=== PATIENT | female | born 1990 | race Caucasian/White ===

== ENCOUNTER 2016-11-13 16:15 | Emergency (ER) | payer OTHER ==
[~2016-11-13] VITALS: Ht 157.5 cm; Wt 44.8 kg
[~2016-11-13 16:15] MED LIST: ACET-749 PO; ALBUAER2 INH; CIPR1TAB11 PO; MULT-506 PO
[2016-11-13 16:21] VITALS: TEMP 36.8; Ht 157.5 cm; Wt 44.8 kg
[2016-11-13] MEDS ORDERED: MoRPHine SULFATE 4 MG/ML 1 ML CARP\\VIAL IV STA (16:58)
[2016-11-13] MEDS ORDERED: ONDANSETRON INJ 2 MG/ML 2 ML VIAL IV STA (16:58)
[2016-11-13] MEDS ORDERED: SODIUM CHLORIDE 0.9% 1000ML 1,000 ML IV STA (16:58)
[2016-11-13] MEDS ORDERED: PRVHFAIN INH (17:11)
[2016-11-13] MEDS ORDERED: IBUP-103 PO (17:11)
[2016-11-13 17:14] LABS: BASO % 0.1 %; BASO ABS # 0.01 K/uL (0-0.2); COMPLETE YES; EOS % 0.6 %; HEMATOCRIT 38.8 % (37-47); IG% 0.1 %; LYMPH % 10.8 %; LYMPH ABS # 0.85 K/uL (1.2-3.4); MEAN CELL VOLUME 90.9 fL (80-100); MEAN CORPUSCULAR HEMOGLOBIN 31.1 pg (25-34); MEAN CORPUSCULAR HGB CONC 34.3 g/dl (32-36); MEAN PLATELET VOLUME 10.7 fL (7.4-10.4); MONO % 5.2 %; NEUT % 83.2 %; PLATELET COUNT 255 K/uL (130-400); RED BLOOD COUNT 4.27 M/uL (4.2-5.4); WHITE BLOOD COUNT 7.87 K/uL (4.8-10.8)
[2016-11-13 17:29] LABS: CALCIUM 9.5 mg/dl (8.5-10.1); CREATININE 0.81 mg/dl (0.60-1.20); POTASSIUM 3.8 mmol/L (3.5-5.1)
[2016-11-13 18:05] LABS: PREG INTERNAL NEGATIVE QC NEG CLEAR BACKGROUND; PREG INTERNAL POSITIVE QC POS CONTROL LINE
[2016-11-13 18:24] VITALS: BP 104/52; PULSE 100; O2SAT 99
--- NOTE | 2016-11-13 18:30 | DIAGNOSTIC IMAGING REPORT ---
ULTRASOUND RIGHT UPPER QUADRANT ABDOMEN CLINICAL HISTORY: Right upper quadrant abdominal pain. COMPARISON STUDY: No priors. TECHNIQUE: Real-time, grayscale, and color flow sonography of the right upper quadrant of the abdomen was performed. Images are reviewed in the transverse and longitudinal planes. FINDINGS: Liver: The liver is normal in size and echotexture. There is no intrahepatic biliary ductal dilatation. The main portal vein is patent. Gallbladder: There are least 2 small gallbladder polyps measure up to 4 mm. The gallbladder is otherwise normal in appearance. No gallstones are identified. There is no gallbladder wall thickening or pericholecystic fluid. A sonographic Borja's sign is reportedly absent. The common bile duct measures up to 0.3 cm in diameter. Pancreas: Visualized portions of the pancreatic head and body are normal in appearance. The splenic vein is patent. Right kidney: Survey images of the right kidney demonstrate normal size and echotexture. There is no hydronephrosis. Ascites: None. IMPRESSION: Unremarkable sonographic assessment of the right upper quadrant. No gallstones are identified. Electronically signed by: Ton Garibay M.D. 11/13/2016 6:28 PM Dictated Date/Time: 11/13/2016 6:27 PM
--- NOTE | 2016-11-13 18:32 | DIAGNOSTIC IMAGING REPORT ---
PA CHEST WITH RIGHT-SIDED RIB SERIES CLINICAL HISTORY: Right chest wall pain FINDINGS: A PA chest radiograph with 4 additional views may right-sided rib series are obtained. No prior studies are available for comparison at the time of dictation. The cardiomediastinal silhouette is unremarkable. The lungs and pleural spaces are clear. No pneumothorax is seen. There is no radiographic evidence of right-sided rib fracture on the rib series. The remainder of the bony thorax is grossly intact. IMPRESSION: 1. No active disease in the chest. 2. There is no radiographic evidence of right-sided rib fracture as clinically queried. Electronically signed by: Ton Garibay M.D. 11/13/2016 6:31 PM Dictated Date/Time: 11/13/2016 6:30 PM
[2016-11-13 18:59] LABS: URINE APPEARANCE CLEAR (CLEAR); URINE BILIRUBIN NEG (NEG); URINE COLOR YELLOW; URINE NITRITE NEG (NEG); URINE SPECIFIC GRAVITY 1.006 (1.000-1.030); UROBILINOGEN NEG (NEG)
[2016-11-13 19:11] LABS: MANUAL MICROSCOPIC REQUIRED? NO; REVIEW REQ? NO
--- NOTE | 2016-11-13 19:51 | EMERGENCY ROOM VISIT NOTE ---
ED Visit Note First contact with patient: 16:27 Chief Complaint: Abdominal pain. History of Present Illness: Ms. Mg is a 25 year-old white female who ambulates into the ED accompanied by her son and a male friend complaining of right upper quadrant abdominal and chest pain. Historically patient reports she has asthma but no other significant abdominal disorders or surgeries. Patient reports approximately 2 weeks ago patient had an abrupt discomfort under her ribs/right upper quadrant area. She reports since that time her pain has been constant but has waxed and waned in intensity. She was seen at a local urgent care center who thought there was possibly a muscle strain and she was prescribed a steroid and had no relief of her symptoms. Currently patient describes her discomfort as if something is "pushing against her ribs." She currently rates her discomfort 7/10. When she does report a wax and wanes in intensity. She has not identified any factors that always increase or decrease her pain. In addition to the prednisone she has been using ibuprofen and has had no relief of her discomfort. Associated with her discomfort she reports that intermittently she has feels like she cannot catch her breath, she has lost approximately 12 pounds, loss of appetite, she is nauseated but has not vomited, epigastric burning sensations, palpitations. Patient denies skin eruptions, skin color changes, upper respiratory tract symptoms, cough, wheezing, orthopnea, dependent edema, previous clots, claudication, cramping, recent surgery/inactivity/tobacco and estrogen use, diarrhea, constipation, rectal bleeding, black/tarry stools, urinary symptoms, hematuria, vaginal bleeding, vaginal discharge, back/flank pain. Review of Systems: As noted above in history of present illness. All body systems were reviewed and found to be negative as noted above. Past Medical History: As previously noted. Current Medications: Albuterol, multivitamins. Allergies to Medications: Patient denies. Social History: Patient is not employed; she feels safe in her home environment ; she admits to tobacco use and denies alcohol use. Physical Examination: Vital Signs: Date Time Temp Pulse Resp B/P Pulse Ox O2 Delivery O2 Flow Rate FiO2 11/13/16 18:24 100 16 104/52 99 Room Air 11/13/16 17:39 60 12 118/58 100 Room Air 11/13/16 16:21 36.8 97 20 92/46 98 Room Air GENERAL: 25-year-old female in mild distress due to pain, nontoxic-appearing, afebrile and hemodynamically stable. NEUROLOGICAL: Awake, alert and oriented to person, place and time. Answering questions appropriately and following commands. Normal gait. Good hand eye coordination. SKIN: Warm, dry and pink. No soft tissue eruptions or trauma noted. HEENT: Atraumatic and normocephalic. PERRLA. Sclera white and conjunctiva pink. Oral cavity moist and pink. Pharynx is nonerythematous or edematous. Speech normal. No lymphadenopathy. Trachea midline. No jugular venous distention. BACK: No tenderness over the bony spine. No CVA tenderness. THORAX: Lungs sounds are clear to auscultation and equal bilaterally with symmetrical chest wall. No wheezing, rales or rhonchi. Mild tenderness over the right lateral ribs without bony deformity, bony crepitus, swelling, ecchymosis or subcutaneous air. No increased respiratory effort or rate. HEART: Regular rate and rhythm. No gallops, rubs or murmurs are appreciated. PMI is not displaced. No lifts, heaves or thrills. ABDOMEN: Flat and soft with [id number] tenderness in the epigastrium and right upper quadrant. Decreased bowel sounds in all quadrants. No guarding, rigidity or organomegaly. EXTREMITIES: Moves all extremities well on command and with purpose. All distal neurovascular statuses are intact and equal bilaterally. ED Course: Patient is assessed as noted above. Laboratory Testing: Test 11/13/16 16:45 11/13/16 16:52 Range/Units White Blood Count 7.87 4.8-10.8 K/uL Red Blood Count 4.27 4.2-5.4 M/uL Hemoglobin 13.3 12.0-16.0 g/dL Hematocrit 38.8 37-47 % Mean Corpuscular Volume 90.9 80-100 fL Mean Corpuscular Hemoglobin 31.1 25-34 pg Mean Corpuscular Hemoglobin Concent 34.3 32-36 g/dl Platelet Count 255 130-400 K/uL Mean Platelet Volume 10.7 7.4-10.4 fL Neutrophils (%) (Auto) 83.2 % Lymphocytes (%) (Auto) 10.8 % Monocytes (%) (Auto) 5.2 % Eosinophils (%) (Auto) 0.6 % Basophils (%) (Auto) 0.1 % Neutrophils # (Auto) 6.54 1.4-6.5 K/uL Lymphocytes # (Auto) 0.85 1.2-3.4 K/uL Monocytes # (Auto) 0.41 0.11-0.59 K/uL Eosinophils # (Auto) 0.05 0-0.5 K/uL Basophils # (Auto) 0.01 0-0.2 K/uL RDW Standard Deviation 43.0 36.4-46.3 fL RDW Coefficient of Variation 13.0 11.5-14.5 % Immature Granulocyte % (Auto) 0.1 % Immature Granulocyte # (Auto) 0.01 0.00-0.02 K/uL Sodium Level 139 136-145 mmol/L Potassium Level 3.8 3.5-5.1 mmol/L Chloride Level 107 98-107 mmol/L Carbon Dioxide Level 25 21-32 mmol/L Anion Gap 7.0 3-11 mmol/L Blood Urea Nitrogen 7 7-18 mg/dl Creatinine 0.81 0.60-1.20 mg/dl Est Creatinine Clear Calc Drug Dose 76.4 ml/min Estimated GFR () 118.6 Estimated GFR (Non- 102.4 BUN/Creatinine Ratio 9.0 10-20 Random Glucose 96 70-99 mg/dl Calcium Level 9.5 8.5-10.1 mg/dl Total Bilirubin 0.5 0.2-1 mg/dl Direct Bilirubin 0.1 0-0.2 mg/dl Aspartate Amino Transf (AST/SGOT) 12 15-37 U/L Alanine Aminotransferase (ALT/SGPT) 21 12-78 U/L Alkaline Phosphatase 63 45-117 U/L Total Protein 7.4 6.4-8.2 gm/dl Albumin 4.3 3.4-5.0 gm/dl Lipase 111 73-393 U/L Human Chorionic Gonadotropin, Qual NEG NEG Bedside D-Dimer 133 0-450 ng/mlFEU Bedside Troponin I 0.000 0-0.045 ng/ml EKG: Was read by myself and reviewed with Dr. Baker; shows rhythm with ventricular rate of 71 bpm. Atrial bigeminy. No ischemic changes. No previous to compare. PA Chest and Rib Series: Were read by myself and the radiologist showing no acute infiltrates, effusions or pneumothorax. Normal heart silhouette and no apparent bony abnormalities. RUQ Ultrasound: Was reviewed by myself and read by the radiologist showing a normal-appearing liver, pancreas and kidney. The gallbladder was noted to have at least 2 small polyps measuring up to 4 mm without gallstones, gallbladder wall thickening, pericholecystic fluid and negative Borja sign. Common bile duct measures 0.3 cm. Patient was hydrated with normal saline and she received 4 mg of morphine IV for pain and 4 mg of Zofran IV for nausea. Patient was reassessed multiple times during her stay in the emergency department. Patient's case was reviewed with Dr. Baker; we agreed upon diagnostic approach, treatment, disposition and plan. Patient was educated about tonight's findings and instructed on her treatment plan; she verbalizes understanding and agreement with this plan. Clinical Impression: Right upper quadrant abdominal pain. Gallbladder polyps. Possible GERD. Decision-Making: Initially my differential diagnosis I considered acute cholecystitis, hepatitis, pancreatitis, pneumonia, rib fracture, pulmonary embolism, pneumothorax and other causes. Disposition: Patient discharged home in stable condition accompanied by a male friend; prior to departure she was reassessed and subjectively reported she was feeling much better. She rated her discomfort 2/10 and reported resolution of nausea. Additionally she reported she felt like she was breathing much easier now. Plan: Patient was encouraged to use 650 mg of acetaminophen as needed for pain and [id number] Zantac for indigestion like symptoms. Patient was encouraged use a low-fat diet and avoid stomach irritants and late night eating. Patient was encouraged to follow-up with Dr. Tom Knowles, general surgery, for surgical evaluation. Patient was encouraged return the ED for worsening/uncontrolled pain, fevers, bloody vomitus, bloody stools or any new/concerning symptoms.
== END 2016-11-13 19:05 | disposition home or self-care (01) ==
LOC: C.EDB 16:18 → C.EDC 19:05
DX: K82.4 Cholesterolosis of gallbladder (principal); R10.11 Right upper quadrant pain; F17.200 Nicotine dependence, unspecified, uncomplicated; Z79.899 Other long term (current) drug therapy

== ENCOUNTER → 2017-01-08 | Outpatient (CLI) | payer OTHER ==
[~2017-01-08] MED LIST changes: -ACET-749 PO; -ALBUAER2 INH; +BCPILLS PO; -CIPR1TAB11 PO; +IBUP-103 PO; -MULT-506 PO; +OXYC-57 PO; +PRVHFAIN INH; +RANI150T3 PO
[2017-01-08 15:17] LABS: MANUAL MICROSCOPIC REQUIRED? NO; REVIEW REQ? NO; URINE APPEARANCE CLEAR (CLEAR); URINE BILIRUBIN NEG (NEG); URINE COLOR YELLOW; URINE NITRITE NEG (NEG); URINE PH 6.5 (4.5-7.5); URINE SPECIFIC GRAVITY 1.006 (1.000-1.030); UROBILINOGEN NEG (NEG)
== END | disposition home or self-care (01) ==
LOC: C.LABSPEC 14:57
PROVIDERS: ATTEND Obstetrics & Gynecology
DX: R30.0 Dysuria (principal)

== ENCOUNTER 2017-02-10 18:57 | Observation (INO) | payer OTHER ==
[~2017-02-10] VITALS: Ht 160 cm; Wt 45.4 kg
[~2017-02-10 18:57] MED LIST changes: -BCPILLS PO; -OXYC-57 PO; -RANI150T3 PO
[2017-02-10] MEDS ORDERED: SODIUM CHLORIDE 0.9% 1000ML 1,000 ML IV STA (19:01)
[2017-02-10] MEDS ORDERED: HYDROmorphone INJ 1 MG/ML SYR IV STA (19:07)
[2017-02-10] MEDS ORDERED: METOCLOPRAMIDE HCL INJ 5 MG/ML 2 ML VIAL IV STA (19:07)
[2017-02-10] MEDS ORDERED: OPTIRAY 320 IV PRN (19:15)
[2017-02-10 19:18] LABS: BASO % 0.1 %; BASO ABS # 0.01 K/uL (0-0.2); COMPLETE YES; EOS % 0.4 %; HEMATOCRIT 41.7 % (37-47); IG% 0.2 %; LYMPH % 5.5 %; LYMPH ABS # 0.73 K/uL (1.2-3.4); MEAN CORPUSCULAR HEMOGLOBIN 30.6 pg (25-34); MEAN CORPUSCULAR HGB CONC 33.6 g/dl (32-36); MONO % 4.3 %; NEUT % 89.5 %; PLATELET COUNT 214 K/uL (130-400); RED BLOOD COUNT 4.58 M/uL (4.2-5.4); WHITE BLOOD COUNT 13.39 K/uL (4.8-10.8)
[2017-02-10] MEDS ORDERED: RANI150T3 PO (19:18)
[2017-02-10] MEDS ORDERED: BCPILLS PO (19:18)
--- NOTE | 2017-02-10 19:22 | EMERGENCY ROOM VISIT NOTE ---
History Report prepared by Devang: Destiny Carlson Under the Supervision of: Dr. Kendall Eaton M.D. First contact with patient: 18:54 Chief Complaint: ABDOMINAL PAIN Stated Complaint: Abdominal Pain History of Present Illness The patient is a 26 year old female who presents to the Emergency Room with complaints of worsening abdominal pain for the past 7 hours. She developed diffuse abdominal pain around noon today. She is complaining of abdominal cramping, nausea, and vomiting. The patient was brought to the ED by ambulance. Her pain was a 10/10 in severity. She was given 5 mg of morphine en route and states that her pain improved. She rates her current pain as a 6/10 in severity. EMS states that after she received the narcotics, her pressure dropped significantly so they did not administer any more morphine. The patient had a cholecystectomy 3 weeks ago at [facility]. Her LNMP was January 31. She denies any chance of . Source of History: patient, EMS Onset: 7 hours ago Position: abdomen (diffuse) Symptom Intensity: 6/10 Quality: cramping Timing: worsening Modifying Factors (Relieving): narcotics Associated Symptoms: + nausea, + vomiting Review of Systems See HPI for pertinent positives & negatives. A total of 10 systems reviewed and were otherwise negative. Past Medical & Surgical Medical Problems: (1) PLACENTAINCRETA (2) Retained placenta (3) Retained placenta Surgical Problems: (1) Hx of cholecystectomy Family History No pertinent history stated. Social History Smoking Status: Current Every Day Smoker Current/Historical Medications Scheduled Control Pills ( Control Pills), 1 TAB PO DAILY Ranitidine Hcl (Zantac), 150 MG PO QAM Scheduled PRN Albuterol (Ventolin Hfa), 2 PUFFS INH Q4H PRN for Wheezing Allergies Coded Allergies: No Known Allergies (Unverified , 02/10/17) Physical Exam Vital Signs Date Time Temp Pulse Resp B/P (MAP) Pulse Ox O2 Delivery O2 Flow Rate FiO2 02/10/17 23:00 93 14 101/88 98 Room Air 02/10/17 21:27 67 11 97 02/10/17 21:02 107/72 02/10/17 20:57 75 24 02/10/17 20:31 85/44 02/10/17 20:27 78 16 99 02/10/17 20:26 76 18 108/54 99 02/10/17 20:16 108/54 02/10/17 19:57 77 100 02/10/17 19:19 69 20 118/72 98 Room Air 02/10/17 19:13 65 02/10/17 19:09 118/72 Physical Exam GENERAL: Patient is a healthy-appearing well-nourished young female. HEAD: Normocephalic atraumatic EYES: Ocular movements intact pupils equal and react to light OROPHARYNX mucous membranes are moist no exudates present no erythema or edema present NECK: Supple no nuchal rigidity CHEST: Good equal expansion LUNGS: Clear and equal to auscultation CARDIAC: Normal S1 and S2 ABDOMEN: Soft, diffuse tenderness, no guarding BACK: No CVA tenderness EXTREMITIES: No pain upon palpation normal muscle strength in all groups no clubbing cyanosis or edema NEURO: Patient is following commands and answering questions appropriately. Alert and oriented x3 Cranial Nerves 2-12 grossly intact Medical Decision & Procedures ER Provider Diagnostic Interpretation: Radiology results as stated below per my review and radiologist interpretation: ABDOMEN AND PELVIS CT WITH IV AND ORAL CONTRAST CT DOSE: 248.16 mGy.cm HISTORY: Generalized abdominal pain. TECHNIQUE: Multiaxial CT images of the abdomen and pelvis were performed following the use of intravenous and oral contrast. COMPARISON STUDY: Abdominal ultrasound 11/13/2016. FINDINGS: Blind-ending tubular structure within the right lower quadrant which is thickened and fluid-filled. This likely represents the inflamed appendix is consistent with acute appendicitis. This measures up to 11 mm in diameter. There is fluid surrounding the inflamed appendix and mild enhancement of the right posterior peritoneal lining. However, there are no loculated fluid collections at this time to suggest an abscess. There is no extraluminal gas to suggest a perforation. Small amount of pelvic free fluid. A 3.5 cm left ovarian cyst. The bladder, uterus, and right ovary are unremarkable. No retroperitoneal lymphadenopathy. Mild intra and extra hepatic bile duct dilatation. This is likely due to the patient's postcholecystectomy state. The common bile duct measures 8 mm. No hepatic or splenic masses. The adrenal glands, kidneys, and pancreas are unremarkable. Dilatation of the duodenum is likely due to an ileus from the adjacent inflammatory change. No additional dilated loops of small bowel identified. The duodenal measures up to 3.1 cm in diameter. IMPRESSION: 1. Above findings are consistent with acute appendicitis. 2. A 3.5 cm left ovarian cyst. 4. Small amount of pelvic fluid. 5. Cholecystectomy. 6. Mild dilatation of the duodenum may be due to an ileus from the adjacent inflammatory change. Electronically signed by: Alvaro Butler M.D. 02/10/2017 9:53 PM Dictated Date/Time: 02/10/2017 9:42 PM Laboratory Results 02/10/17 19:05 Red Blood Count 4.58, Mean Corpuscular Volume 91.0, Mean Corpuscular Hemoglobin 30.6, Mean Corpuscular Hemoglobin Concent 33.6, Mean Platelet Volume 11.0, Neutrophils (%) (Auto) 89.5, Lymphocytes (%) (Auto) 5.5, Monocytes (%) (Auto) 4.3, Eosinophils (%) (Auto) 0.4, Basophils (%) (Auto) 0.1, Neutrophils # (Auto) 11.99, Lymphocytes # (Auto) 0.73, Monocytes # (Auto) 0.58, Eosinophils # (Auto) 0.05, Basophils # (Auto) 0.01 02/10/17 19:05 Test 02/10/17 19:05 02/10/17 19:13 02/10/17 20:15 02/10/17 23:07 White Blood Count 13.39 K/uL (4.8-10.8) Red Blood Count 4.58 M/uL (4.2-5.4) Hemoglobin 14.0 g/dL (12.0-16.0) Hematocrit 41.7 % (37-47) Mean Corpuscular Volume 91.0 fL (80-100) Mean Corpuscular Hemoglobin 30.6 pg (25-34) Mean Corpuscular Hemoglobin Concent 33.6 g/dl (32-36) Platelet Count 214 K/uL (130-400) Mean Platelet Volume 11.0 fL (7.4-10.4) Neutrophils (%) (Auto) 89.5 % Lymphocytes (%) (Auto) 5.5 % Monocytes (%) (Auto) 4.3 % Eosinophils (%) (Auto) 0.4 % Basophils (%) (Auto) 0.1 % Neutrophils # (Auto) 11.99 K/uL (1.4-6.5) Lymphocytes # (Auto) 0.73 K/uL (1.2-3.4) Monocytes # (Auto) 0.58 K/uL (0.11-0.59) Eosinophils # (Auto) 0.05 K/uL (0-0.5) Basophils # (Auto) 0.01 K/uL (0-0.2) RDW Standard Deviation 42.4 fL (36.4-46.3) RDW Coefficient of Variation 12.9 % (11.5-14.5) Immature Granulocyte % (Auto) 0.2 % Immature Granulocyte # (Auto) 0.03 K/uL (0.00-0.02) Est Creatinine Clear Calc Drug Dose 86.7 ml/min Estimated GFR () 121.4 Estimated GFR (Non- 104.8 BUN/Creatinine Ratio 9.0 (10-20) Calcium Level 8.7 mg/dl (8.5-10.1) Total Bilirubin 0.4 mg/dl (0.2-1) Direct Bilirubin 0.1 mg/dl (0-0.2) Aspartate Amino Transf (AST/SGOT) 13 U/L (15-37) Alanine Aminotransferase (ALT/SGPT) 20 U/L (12-78) Alkaline Phosphatase 62 U/L (45-117) Total Protein 7.0 gm/dl (6.4-8.2) Albumin 4.2 gm/dl (3.4-5.0) Lipase 108 U/L (73-393) Human Chorionic Gonadotropin, Qual NEG (NEG) Bedside Hemoglobin 14.3 g/dl (12.0-16.0) Bedside Hematocrit 42 % (37-47) Bedside Sodium 140 mEq/L (135-144) Bedside Potassium 3.4 mEq/L (3.3-5.0) Bedside Chloride 102 mEq/L (101-112) Bedside Total CO2 23 mEq/l (24-31) Anion Gap 20.0 mmol/L (16-25) Bedside Blood Urea Nitrogen 7 mg/dl (7-18) Bedside Creatinine 0.8 mg/dl (0.6-1.3) Bedside Glucose (other) 95 mg/dl (70-99) Bedside Ionized Calcium (Arnaldo) 1.16 mmol/l (1.12-1.32) Urine Color YELLOW Urine Appearance CLEAR (CLEAR) Urine pH 5.0 (4.5-7.5) Urine Specific [place] 1.015 (1.000-1.030) Urine Protein NEG (NEG) Urine Glucose (UA) NEG (NEG) Urine Ketones 1+ (NEG) Urine Occult Blood NEG (NEG) Urine Nitrite NEG (NEG) Urine Bilirubin NEG (NEG) Urine Urobilinogen NEG (NEG) Urine Leukocyte Esterase NEG (NEG) Urine Test NEG (NEG) Labs reviewed by ED physician. Medications Administered Medications (Trade) Dose Ordered Sig/Stan Route Start Time Stop Time Status Last Admin Dose Admin Sodium Chloride 1,000 ml @ 999 mls/hr Q1H1M STAT IV 02/10/17 19:01 02/10/17 20:01 DC 02/10/17 19:25 999 MLS/HR Hydromorphone HCl (Dilaudid Inj) 1 mg NOW STAT IV 02/10/17 19:07 02/10/17 19:08 DC 02/10/17 19:26 1 MG Metoclopramide HCl (Reglan Inj) 10 mg NOW STAT IV 02/10/17 19:07 02/10/17 19:08 DC 02/10/17 19:26 10 MG Cefoxitin Sodium (Mefoxin 2000mg/ 60 ml D5W) 2,000 mg NOW STAT IV 02/10/17 21:58 02/10/17 21:59 DC 02/10/17 21:58 2,000 MG ECG Indication: abdominal pain Rate (beats per minute): 69 Rhythm: other (atrial bigeminy) Findings: no acute ischemic change, no ectopy Comparison ECG Date: 11/13/16 Change: no significant change ED Course 1853: Past medical records reviewed. The patient was evaluated in room B1. A complete history and physical examination was performed. 0: At this time I performed a bedside F.A.S.T. ultrasound that was normal and did not show any free fluid. 1900: NSS 1000 ml @ 999 mls/hr IV 1906: Reglan 10 mg IV, Dilaudid 1 mg IV 2157: Cefoxitin Sodium 2000 mg IV 2201: I spoke with Dr. Clark of general surgery. We discussed the patient's case and Dr. Clark will come to the ED to evaluate the patient for surgery. 2211: I reassessed the patient at this time. She is doing well. I discussed the results and treatment plan with the patient. I answered all pertaining questions that she had. She expressed understanding and verbalized agreement. Medical Decision Differential diagnosis: Etiologies such as appendicitis, diverticulitis, PUD, biliary pathology, UTI, pancreatitis, obstruction, mesenteric ischemia, aortic pathology, infections, inflammatory bowel disease, renal colic, as well as others were entertained. Medication Reconciliation: I attest that I have personally reviewed the patient' s current medication list. Blood Pressure Screening: Patient was found to have normal blood pressure on screening and does not require follow up. This is a 26-year-old female that presents emergency department complaining of diffuse abdominal pain. An IV was established, patient given normal saline bolus, Dilaudid, Reglan. The patient was sent for a CAT scan of the abdomen and pelvis. This was concerning for acute appendicitis. For this reason I did discuss the case with the surgery service who agreed to admit the patient. Patient was in agreement with the treatment plan. Consults Time Called: 2199 Consulting Physician: Dr. Clark Returned Call: [address] Clark of general surgery. We discussed the patient's case and Dr. Clark will come to the ED to evaluate the patient for surgery. Impression Primary Impression: Acute appendicitis Scribe Attestation The scribe's documentation has been prepared under my direction and personally reviewed by me in its entirety. I confirm that the note above accurately reflects all work, treatment, procedures, and medical decision making performed by me. Departure Information Dispostion Being Evaluated By Surgeon Referrals No Doctor, Assigned (PCP) Patient Instructions My [facility] Problem Qualifiers Primary Impression: Acute appendicitis Acute appendicitis type: unspecified acute appendicitis type Qualified Codes : K35.80 - Unspecified acute appendicitis
[2017-02-10 19:27] LABS: ISTAT CREATININE 0.8 mg/dl (0.6-1.3); ISTAT HEMOGLOBIN 14.3 g/dl (12.0-16.0); ISTAT IONIZED CALCIUM 1.16 mmol/l (1.12-1.32)
[2017-02-10 19:35] LABS: CALCIUM 8.7 mg/dl (8.5-10.1); CREATININE 0.79 mg/dl (0.60-1.20); POTASSIUM 3.4 mmol/L (3.5-5.1)
[2017-02-10 19:38] LABS: PREG INTERNAL NEGATIVE QC NEG CLEAR BACKGROUND; PREG INTERNAL POSITIVE QC POS CONTROL LINE
[2017-02-10 20:28] LABS: URINE APPEARANCE CLEAR (CLEAR); URINE BILIRUBIN NEG (NEG); URINE COLOR YELLOW; URINE NITRITE NEG (NEG); URINE SPECIFIC GRAVITY 1.015 (1.000-1.030); UROBILINOGEN NEG (NEG)
[2017-02-10 20:31] LABS: MANUAL MICROSCOPIC REQUIRED? NO; REVIEW REQ? NO
--- NOTE | 2017-02-10 21:54 | DIAGNOSTIC IMAGING REPORT ---
ABDOMEN AND PELVIS CT WITH IV AND ORAL CONTRAST CT DOSE: 248.16 mGy.cm HISTORY: Generalized abdominal pain. TECHNIQUE: Multiaxial CT images of the abdomen and pelvis were performed following the use of intravenous and oral contrast. COMPARISON STUDY: Abdominal ultrasound 11/13/2016. FINDINGS: Blind-ending tubular structure within the right lower quadrant which is thickened and fluid-filled. This likely represents the inflamed appendix is consistent with acute appendicitis. This measures up to 11 mm in diameter. There is fluid surrounding the inflamed appendix and mild enhancement of the right posterior peritoneal lining. However, there are no loculated fluid collections at this time to suggest an abscess. There is no extraluminal gas to suggest a perforation. Small amount of pelvic free fluid. A 3.5 cm left ovarian cyst. The bladder, uterus, and right ovary are unremarkable. No retroperitoneal lymphadenopathy. Mild intra and extra hepatic bile duct dilatation. This is likely due to the patient's postcholecystectomy state. The common bile duct measures 8 mm. No hepatic or splenic masses. The adrenal glands, kidneys, and pancreas are unremarkable. Dilatation of the duodenum is likely due to an ileus from the adjacent inflammatory change. No additional dilated loops of small bowel identified. The duodenal measures up to 3.1 cm in diameter. IMPRESSION: 1. Above findings are consistent with acute appendicitis. 2. A 3.5 cm left ovarian cyst. 4. Small amount of pelvic fluid. 5. Cholecystectomy. 6. Mild dilatation of the duodenum may be due to an ileus from the adjacent inflammatory change. Electronically signed by: Alvaro Butler M.D. 02/10/2017 9:53 PM Dictated Date/Time: 02/10/2017 9:42 PM
[2017-02-10] MEDS ORDERED: CEFOXITIN 2000MG/60 ML D5W IV STA ×2 (21:58→22:44)
--- NOTE | 2017-02-10 22:54 | Surgery Consultation ---
Consultation Date of Consultation: Feb 10, 2017. Attending Physician: History of Present Illness pt is a 26 years old female who presents to ER for 1 day history RLQ pain, with nausea, vomiting, and diarrhea, the pain is located at RLQ area, pt denies fever, pt had laparoscopic cholecystectomy 5 weeks ago. Past Medical/Surgical History Medical Problems: (1) Acute appendicitis Status: Acute (2) Right upper quadrant abdominal pain Status: Acute Social History Smoking Status: Current Every Day Smoker Smokeless Tobacco Use: No Alcohol Use: occasionally Drug Use: none Allergies Coded Allergies: No Known Allergies (Unverified , 02/10/17) Home Medications Scheduled Control Pills ( Control Pills), 1 TAB PO DAILY Ranitidine Hcl (Zantac), 150 MG PO QAM Scheduled PRN Albuterol (Ventolin Hfa), 2 PUFFS INH Q4H PRN for Wheezing Current Inpatient Medications Current Inpatient Medications Medications (Trade) Dose Ordered Sig/Stan Route Start Time Stop Time Status Last Admin Dose Admin Ioversol (Optiray 320) 100 ml UD PRN IV 02/10/17 19:15 02/14/17 19:14 Review of Systems Constitutional: No fever, No chills, No sweats, No weight loss, No weakness, No fatigue, No problem reported Eyes: No worsening of vision, No eye pain, No redness, No discharge, No diplopia, No problem reported ENT: No hearing loss, No unusual epistaxis, No nasal symptoms, No sore throat, No tinnitus, No dental problems, No trouble swallowing, No problem reported Respiratory: No cough, No sputum, No wheezing, No shortness of breath, No dyspnea on exertion, No dyspnea at rest, No hemoptysis, No problem reported Cardiovascular: No chest pain, No orthopnea, No PND, No edema, No claudication , No palpitations, No problem reported Abdomen: + pain, + nausea, + vomiting, + diarrhea Musculoskeletal: No joint pain, No muscle pain, No swelling, No calf pain, No problem reported Genitourinary - Female: No dysuria, No urinary frequency, No urinary urgency, No urinary incontinence, No urinary retention, No hematuria, No dysmenorrhea, No menorrhagia, No metrorrhagia, No rash, No vaginal bleeding, No vaginal discharge, No vaginal itching, No vulvodynia, No , No problem reported Neurologic: No memory loss, No paralysis, No weakness, No numbness/tingling, No vertigo, No balance problems, No problem reported Psychiatric: No depression symptoms, No anhedonism, No anxiety, No insomnia, No substance abuse, No problem reported Hematologic / Lymphatic: No abnormal bleeding/bruising, No clotting problems, No swollen lymph nodes, No night sweats, No problem reported Integumentary: No rash, No itch, No new/changing skin lesions, No color change , No bleeding, No problem reported Physical Exam Date Time Temp Pulse Resp B/P (MAP) Pulse Ox O2 Delivery O2 Flow Rate FiO2 02/10/17 21:27 67 11 97 02/10/17 21:02 107/72 02/10/17 20:57 75 24 02/10/17 20:31 85/44 02/10/17 20:27 78 16 99 02/10/17 20:26 76 18 108/54 99 02/10/17 20:16 108/54 02/10/17 19:57 77 100 02/10/17 19:19 69 20 118/72 98 Room Air 02/10/17 19:13 65 02/10/17 19:09 118/72 General Appearance: WD/WN, + mild distress Head: normocephalic Eyes: normal inspection ENT: normal ENT inspection Neck: supple, no JVD Respiratory/Chest: chest non-tender, lungs clear Cardiovascular: regular rate, rhythm, no edema, no gallop, no JVD, no murmur Abdomen/GI: normal bowel sounds, soft, no organomegaly, no pulsatile mass, + tenderness (tenderness at RLQ, no rebound pain, ) Extremities/Musculoskelatal: normal inspection, no calf tenderness, normal capillary refill Neurologic/Psych: no motor/sensory deficits, alert, normal mood/affect Skin: normal color, warm/dry, no rash Laboratory Results Last 24 Hours Test 02/10/17 19:05 02/10/17 19:13 02/10/17 20:15 White Blood Count 13.39 K/uL Red Blood Count 4.58 M/uL Hemoglobin 14.0 g/dL Hematocrit 41.7 % Mean Corpuscular Volume 91.0 fL Mean Corpuscular Hemoglobin 30.6 pg Mean Corpuscular Hemoglobin Concent 33.6 g/dl Platelet Count 214 K/uL Mean Platelet Volume 11.0 fL Neutrophils (%) (Auto) 89.5 % Lymphocytes (%) (Auto) 5.5 % Monocytes (%) (Auto) 4.3 % Eosinophils (%) (Auto) 0.4 % Basophils (%) (Auto) 0.1 % Neutrophils # (Auto) 11.99 K/uL Lymphocytes # (Auto) 0.73 K/uL Monocytes # (Auto) 0.58 K/uL Eosinophils # (Auto) 0.05 K/uL Basophils # (Auto) 0.01 K/uL RDW Standard Deviation 42.4 fL RDW Coefficient of Variation 12.9 % Immature Granulocyte % (Auto) 0.2 % Immature Granulocyte # (Auto) 0.03 K/uL Sodium Level 141 mmol/L Potassium Level 3.4 mmol/L Chloride Level 108 mmol/L Carbon Dioxide Level 27 mmol/L Anion Gap 6.0 mmol/L 20.0 mmol/L Blood Urea Nitrogen 7 mg/dl Creatinine 0.79 mg/dl Est Creatinine Clear Calc Drug Dose 86.7 ml/min Estimated GFR () 121.4 Estimated GFR (Non- 104.8 BUN/Creatinine Ratio 9.0 Random Glucose 96 mg/dl Calcium Level 8.7 mg/dl Total Bilirubin 0.4 mg/dl Direct Bilirubin 0.1 mg/dl Aspartate Amino Transf (AST/SGOT) 13 U/L Alanine Aminotransferase (ALT/SGPT) 20 U/L Alkaline Phosphatase 62 U/L Total Protein 7.0 gm/dl Albumin 4.2 gm/dl Lipase 108 U/L Human Chorionic Gonadotropin, Qual NEG Bedside Hemoglobin 14.3 g/dl Bedside Hematocrit 42 % Bedside Sodium 140 mEq/L Bedside Potassium 3.4 mEq/L Bedside Chloride 102 mEq/L Bedside Total CO2 23 mEq/l Bedside Blood Urea Nitrogen 7 mg/dl Bedside Creatinine 0.8 mg/dl Bedside Glucose (other) 95 mg/dl Bedside Ionized Calcium (Arnaldo) 1.16 mmol/l Urine Color YELLOW Urine Appearance CLEAR Urine pH 5.0 Urine Specific [place] 1.015 Urine Protein NEG Urine Glucose (UA) NEG Urine Ketones 1+ Urine Occult Blood NEG Urine Nitrite NEG Urine Bilirubin NEG Urine Urobilinogen NEG Urine Leukocyte Esterase NEG Assessment & Plan ABDOMEN AND PELVIS CT WITH IV AND ORAL CONTRAST CT DOSE: 248.16 mGy.cm HISTORY: Generalized abdominal pain. TECHNIQUE: Multiaxial CT images of the abdomen and pelvis were performed following the use of intravenous and oral contrast. COMPARISON STUDY: Abdominal ultrasound 11/13/2016. FINDINGS: Blind-ending tubular structure within the right lower quadrant which is thickened and fluid-filled. This likely represents the inflamed appendix is consistent with acute appendicitis. This measures up to 11 mm in diameter. There is fluid surrounding the inflamed appendix and mild enhancement of the right posterior peritoneal lining. However, there are no loculated fluid collections at this time to suggest an abscess. There is no extraluminal gas to suggest a perforation. Small amount of pelvic free fluid. A 3.5 cm left ovarian cyst. The bladder, uterus, and right ovary are unremarkable. No retroperitoneal lymphadenopathy. Mild intra and extra hepatic bile duct dilatation. This is likely due to the patient's postcholecystectomy state. The common bile duct measures 8 mm. No hepatic or splenic masses. The adrenal glands, kidneys, and pancreas are unremarkable. Dilatation of the duodenum is likely due to an ileus from the adjacent inflammatory change. No additional dilated loops of small bowel identified. The duodenal measures up to 3.1 cm in diameter. IMPRESSION: 1. Above findings are consistent with acute appendicitis. 2. A 3.5 cm left ovarian cyst. 4. Small amount of pelvic fluid. 5. Cholecystectomy. 6. Mild dilatation of the duodenum may be due to an ileus from the adjacent inflammatory change. IMP: acute appendicitis Plan: I recommend to do laparoscopic appendectomy, possible open, D/W benefits, risks and alternatives of the procedure, the risks- infection, bleeding, abscess , injury bowel, pt and her understood, they agree with the plan, I answered all questions, cefoxitin 2gm iv x1 now,
[2017-02-10] MEDS ORDERED: ACETAMINOPHEN 325 MG TAB PO PRN (23:00)
[2017-02-10] MEDS ORDERED: HYDROmorphone INJ 1 MG/ML SYR IV PRN (23:00)
[2017-02-10 23:21] LABS: PREG INTERNAL NEGATIVE QC NEG CLEAR BACKGROUND; PREG INTERNAL POSITIVE QC POS CONTROL LINE
[2017-02-10] MEDS ORDERED: MIDAZOLAM HCL 1 MG/ML 2ML VIAL ONE (23:22)
[2017-02-10] MEDS ORDERED: FENTANYL CITRATE INJ 50 MCG/1 ML 2 ML VIAL ONE (23:23)
[2017-02-10] MEDS ORDERED: FENTANYL CITRATE INJ 50 MCG/1 ML 2 ML VIAL IV PRN (23:30)
[2017-02-10] MEDS ORDERED: EpHEDrine SULFATE INJ 50 MG/ML AMP IV PRN (23:30)
[2017-02-10] MEDS ORDERED: HYDROmorphone INJ 2 MG/ML SYR/VIAL IV PRN (23:30)
[2017-02-10] MEDS ORDERED: ONDANSETRON INJ 2 MG/ML 2 ML VIAL IV PRN (23:30)
[2017-02-10] MEDS ORDERED: MEPERIDINE HCL 25 MG/ML CARP IV PRN (23:30)
[2017-02-10] MEDS ORDERED: PHENYLEPHRINE 100MCG/ML 5ML SYR IV PRN (23:30)
[2017-02-10] MEDS ORDERED: NALOXONE HCL 0.4 MG/1 ML VIAL/CARP IV PRN (23:30)
[2017-02-10] MEDS ORDERED: LABETALOL HCL IV 5 MG/ML 20ML IV PRN (23:30)
[2017-02-10] MEDS ORDERED: FLUMAZENIL 0.1 MG/1 ML 10 ML VIAL IV PRN (23:30)
[2017-02-10] MEDS ORDERED: ATROPINE SULFATE 0.1 MG/ML 5ML SYR IV PRN (23:30)
[2017-02-10] MEDS ORDERED: BACITRACIN OINT 15 GM TUBE ONE (23:46)
[2017-02-10] MEDS ORDERED: LIDOCAINE HCL 1% 20 ML VIAL ONE (23:46)
[2017-02-10] MEDS ORDERED: BUPIVACAINE 0.5 % 5 MG/1 ML MPF 30ML VIAL ONE (23:46)
[2017-02-11] VITALS (12 sets, daily range): BP systolic 82–112; BP diastolic 41–75; PULSE 40–86; TEMP 36.4–36.9; O2SAT 94–100; Ht 160 cm; Wt 45.4 kg
[2017-02-11] MEDS ORDERED: PROPOFOL IV EMULSION 10 MG/ML 20 ML VIAL IV ONE (00:02)
[2017-02-11] MEDS ORDERED: DEXAMETHASONE SOD INJ 4 MG/ML VIAL ONE (00:02)
[2017-02-11] MEDS ORDERED: ONDANSETRON INJ 2 MG/ML 2 ML VIAL ONE (00:02)
[2017-02-11] MEDS ORDERED: SUCCINYLCHOLINE 100MG/5ML SYR IV ONE (00:02)
[2017-02-11] MEDS ORDERED: LIDOCAINE HCL 2% 2 ML VIAL (20MG/ML) ONE (00:02)
[2017-02-11] MEDS ORDERED: NEOSTIGMINE METHYLSULFATE 5 MG/5 ML SYR ONE (00:03)
[2017-02-11] MEDS ORDERED: ROCURONIUM BROMIDE 10 MG/ML 5 ML VIAL ONE (00:03)
[2017-02-11] MEDS ORDERED: GLYCOPYRROLATE INJ 0.2 MG/ML VIAL ONE (00:03)
[2017-02-11] MEDS ORDERED: KETOROLAC TROMETHAMINE 30 MG/ML VIAL ONE (00:21)
--- NOTE | 2017-02-11 00:48 | [facility] Post Operative Brief Note ---
Immediate Operative Summary Operative Date Feb 11, 2017. Pre-Operative Diagnosis Acute Appendicitis Post-Operative Diagnosis Same as preoperative Procedure(s) Performed Laparoscopic Appendectomy Surgeon Dr. 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
[2017-02-11] MEDS ORDERED: IV FLUIDS COMPLETED PRN (01:00)
--- NOTE | 2017-02-11 01:07 | Anesthesiology Progress Note ---
Anesthesia Post Op Note Date & Time Feb 11, 2017 at 01:07 Vital Signs Pain Intensity: 2 Vital Signs Past 12 Hours Date Time Temp Pulse Resp B/P (MAP) Pulse Ox O2 Delivery O2 Flow Rate FiO2 02/11/17 01:05 36.6 77 16 103/59 100 Room Air 02/11/17 00:55 69 14 121/58 98 Room Air 02/11/17 00:45 36.4 99 14 106/34 100 Oxymask 5 02/10/17 23:00 93 14 101/88 98 Room Air 02/10/17 21:27 67 11 97 02/10/17 21:02 107/72 02/10/17 20:57 75 24 02/10/17 20:31 85/44 02/10/17 20:27 78 16 99 02/10/17 20:26 76 18 108/54 99 02/10/17 20:16 108/54 02/10/17 19:57 77 100 02/10/17 19:19 69 20 118/72 98 Room Air 02/10/17 19:13 65 02/10/17 19:09 118/72 Notes Mental Status: alert / awake / arousable, participated in evaluation Pt Amnestic to Procedure: Yes Nausea / Vomiting: adequately controlled Pain: adequately controlled Airway Patency, RR, SpO2: stable & adequate BP & HR: stable & adequate Hydration State: stable & adequate Anesthetic Complications: no major complications apparent
[2017-02-11] MEDS ORDERED: ONDANSETRON INJ 2 MG/ML 2 ML VIAL IV PRN (02:00)
[2017-02-11] MEDS ORDERED: NURSING VERBAL MED ORDER ONE ×2 (02:00)
--- NOTE | 2017-02-11 02:13 | OPERATIVE REPORT ---
DATE OF OPERATION: 02/10/2017 PREOPERATIVE DIAGNOSIS: Acute appendicitis. POSTOPERATIVE DIAGNOSIS: Same. PROCEDURE: Laparoscopic appendectomy. SURGEON: Dr. Jameson Clark ANESTHESIA: General. ESTIMATED BLOOD LOSS: About 5 mL IV FLUIDS: 1000 mL FINDINGS: Acute appendicitis. COMPLICATIONS: None. INDICATIONS FOR THE PROCEDURE: This is a 26-year-old female, who presented to the ED with a 1-day history of right lower quadrant pain. The patient had a CT scan that confirmed the patient has acute appendicitis. We recommended to do a laparoscopic appendectomy, possible open. I did talk to the patient about the benefit and risk, alternative procedure. I indicated the risks may include, but not limited, such as bleeding, infection, abscess, injury to bowel. The patient understands. She signed informed consent and I answered all questions. DETAILS OF PROCEDURE: We brought the patient to the OR and put the patient in the supine position. The patient received SCDs on bilateral legs to prevent DVT. Also, the patient received 2 gram cefoxitin IV for prophylactic antibiotic. The patient received general anesthesia without difficulty. The abdomen was prepped and draped in routine sterile fashion. After time out, I injected the local anesthesia by using 1% lidocaine mixed with 0.5% Marcaine just above the umbilicus. Then, I made a small incision just above umbilicus, opened fascia and opened peritoneum under direct vision. I put a Bobo trocar in, connected to CO2 to create pneumoperitoneum. Flow rate was 6 liter per minute. Pressure not more than 14 mmHg. Once we got a nice pneumoperitoneum, we put another two 5 mm trocars on the left side lower quadrant under direct vision. Once all trocars were in, we did explore the abdomen, saw normal findings on the stomach, small bowel, large bowel; however, patient had one left-sided ovarian cyst and no rupture, about 3 cm x 3 cm and the appendix had significant inflammation, enlarged and was correct as acute appendicitis. At this moment, I used a harmonic to take down the appendix and used a 40 mm Endo-SAJAN stapler to transect around the base of the appendix, rechecked, no active bleeding and no leak and then we removed the appendix through the catch bag and then we re-inserted the Bobo trocar, connected to CO2 to create pneumoperitoneum, again to look around the abdomen, showing normal findings, showing no leak and no injury to bowel, no active bleeding from the right lower quadrant area and at this moment, we removed all trocars under direct vision. No active bleeding and pneumoperitoneum was released. Then I used a #1 Vicryl, closed the fascial layer by using a [id number] x2, closed subcutaneous layer by using 2-0 Vicryl, closed skin by using 4-0 Vicryl, then closed another two 5-mm trocar sites on the skin only by using 4-0 Vicryl. Then, we put the dressing on and before and after the procedure, we had inserted a Sanchez catheter. Also, after the procedure, we removed the Sanchez catheter. Otherwise, the patient tolerated the procedure well. All the instrument, needle and sponge counts correct x2 at the end of the case. Specimen sent to pathology. The patient transferred to the recovery room in stable condition. I attest to the content of the Intraoperative Record and any orders documented therein. Any exceptions are noted below. JAVI
[2017-02-11] MEDS: D5W AND 1/2NSS + 20MEQ KCL 1,000 ML IV SCH ×2 (03:18→15:34)
[2017-02-11] MEDS: OXYCODONE/ACETAMINOPHEN 5-325 TAB PO PRN ×3 (04:22→13:00)
[2017-02-11 07:16] LABS: BASO % 0.1 %; BASO ABS # 0.01 K/uL (0-0.2); COMPLETE YES; HEMATOCRIT 35.2 % (37-47); IG% 0.2 %; LYMPH % 4.3 %; LYMPH ABS # 0.38 K/uL (1.2-3.4); MEAN CELL VOLUME 90.7 fL (80-100); MEAN CORPUSCULAR HEMOGLOBIN 30.9 pg (25-34); MEAN CORPUSCULAR HGB CONC 34.1 g/dl (32-36); MONO % 2.5 %; NEUT % 92.9 %; PLATELET COUNT 192 K/uL (130-400); RED BLOOD COUNT 3.88 M/uL (4.2-5.4); WHITE BLOOD COUNT 8.74 K/uL (4.8-10.8)
[2017-02-11] MEDS ORDERED: CEFTRIAXONE SOD INJ 1 GM in DEXTROSE 5% ADD-VANTAGE 50ML 50 ML IV SCH (09:00)
--- NOTE | 2017-02-11 09:28 | Surgery Progress Note ---
Surgery Progress Note Date of Service Feb 11, 2017. Subjective Post OP Day: POD # 0 s/p laparoscopic appendectomy Pain moderate, slightly controlled Nausea after breakfast, clear liquids No vomiting Urinating fine Objective Vital Signs: Date Time Temp Pulse Resp B/P (MAP) Pulse Ox O2 Delivery O2 Flow Rate FiO2 02/11/17 07:39 66 112/75 (87) 02/11/17 07:35 36.4 66 14 82/41 (55) 94 Room Air 02/11/17 07:30 Room Air 02/11/17 04:15 36.6 40 17 94/58 (70) 99 Room Air 02/11/17 03:15 36.8 86 16 110/63 (79) 97 Room Air 02/11/17 02:15 36.9 71 16 102/65 (77) 97 Room Air 02/11/17 01:42 36.4 76 16 107/71 (83) 96 Room Air 02/11/17 01:19 100 Room Air 02/11/17 01:15 Room Air 02/11/17 01:15 36.6 71 18 98/61 100 Room Air 02/11/17 01:05 36.6 77 16 103/59 100 Room Air 02/11/17 00:55 69 14 121/58 98 Room Air 02/11/17 00:45 36.4 99 14 106/34 100 Oxymask 5 02/10/17 23:00 93 14 101/88 98 Room Air 02/10/17 21:27 67 11 97 02/10/17 21:02 107/72 02/10/17 20:57 75 24 02/10/17 20:31 85/44 02/10/17 20:27 78 16 99 02/10/17 20:26 76 18 108/54 99 02/10/17 20:16 108/54 02/10/17 19:57 77 100 02/10/17 19:19 69 20 118/72 98 Room Air 02/10/17 19:13 65 02/10/17 19:09 118/72 General Appearance: WD/WN, no apparent distress Head: normocephalic, atraumatic Neck: trachea midline Abdomen: non distended, soft, + tenderness (appropriate post op at incision site) Incision(s): clean (dressing clean, some blood present, incision not evaluated ) Laboratory Results: Results Past 24 Hours Test 02/10/17 19:05 02/10/17 19:13 02/10/17 20:15 02/10/17 23:07 Range/Units White Blood Count 13.39 4.8-10.8 K/uL Red Blood Count 4.58 4.2-5.4 M/uL Hemoglobin 14.0 12.0-16.0 g/dL Hematocrit 41.7 37-47 % Mean Corpuscular Volume 91.0 80-100 fL Mean Corpuscular Hemoglobin 30.6 25-34 pg Mean Corpuscular Hemoglobin Concent 33.6 32-36 g/dl Platelet Count 214 130-400 K/uL Mean Platelet Volume 11.0 7.4-10.4 fL Neutrophils (%) (Auto) 89.5 % Lymphocytes (%) (Auto) 5.5 % Monocytes (%) (Auto) 4.3 % Eosinophils (%) (Auto) 0.4 % Basophils (%) (Auto) 0.1 % Neutrophils # (Auto) 11.99 1.4-6.5 K/uL Lymphocytes # (Auto) 0.73 1.2-3.4 K/uL Monocytes # (Auto) 0.58 0.11-0.59 K/uL Eosinophils # (Auto) 0.05 0-0.5 K/uL Basophils # (Auto) 0.01 0-0.2 K/uL RDW Standard Deviation 42.4 36.4-46.3 fL RDW Coefficient of Variation 12.9 11.5-14.5 % Immature Granulocyte % (Auto) 0.2 % Immature Granulocyte # (Auto) 0.03 0.00-0.02 K/uL Sodium Level 141 136-145 mmol/L Potassium Level 3.4 3.5-5.1 mmol/L Chloride Level 108 98-107 mmol/L Carbon Dioxide Level 27 21-32 mmol/L Anion Gap 6.0 20.0 16-25 mmol/L Blood Urea Nitrogen 7 7-18 mg/dl Creatinine 0.79 0.60-1.20 mg/dl Est Creatinine Clear Calc Drug Dose 86.7 ml/min Estimated GFR () 121.4 Estimated GFR (Non- 104.8 BUN/Creatinine Ratio 9.0 10-20 Random Glucose 96 70-99 mg/dl Calcium Level 8.7 8.5-10.1 mg/dl Total Bilirubin 0.4 0.2-1 mg/dl Direct Bilirubin 0.1 0-0.2 mg/dl Aspartate Amino Transf (AST/SGOT) 13 15-37 U/L Alanine Aminotransferase (ALT/SGPT) 20 12-78 U/L Alkaline Phosphatase 62 45-117 U/L Total Protein 7.0 6.4-8.2 gm/dl Albumin 4.2 3.4-5.0 gm/dl Lipase 108 73-393 U/L Human Chorionic Gonadotropin, Qual NEG NEG Bedside Hemoglobin 14.3 12.0-16.0 g/dl Bedside Hematocrit 42 37-47 % Bedside Sodium 140 135-144 mEq/L Bedside Potassium 3.4 3.3-5.0 mEq/L Bedside Chloride 102 101-112 mEq/L Bedside Total CO2 23 24-31 mEq/l Bedside Blood Urea Nitrogen 7 7-18 mg/dl Bedside Creatinine 0.8 0.6-1.3 mg/dl Bedside Glucose (other) 95 70-99 mg/dl Bedside Ionized Calcium (Arnaldo) 1.16 1.12-1.32 mmol/l Urine Color YELLOW Urine Appearance CLEAR CLEAR Urine pH 5.0 4.5-7.5 Urine Specific [place] 1.015 1.000-1.030 Urine Protein NEG NEG Urine Glucose (UA) NEG NEG Urine Ketones 1+ NEG Urine Occult Blood NEG NEG Urine Nitrite NEG NEG Urine Bilirubin NEG NEG Urine Urobilinogen NEG NEG Urine Leukocyte Esterase NEG NEG Urine Test NEG NEG Test 02/11/17 06:50 Range/Units White Blood Count 8.74 4.8-10.8 K/uL Red Blood Count 3.88 4.2-5.4 M/uL Hemoglobin 12.0 12.0-16.0 g/dL Hematocrit 35.2 37-47 % Mean Corpuscular Volume 90.7 80-100 fL Mean Corpuscular Hemoglobin 30.9 25-34 pg Mean Corpuscular Hemoglobin Concent 34.1 32-36 g/dl Platelet Count 192 130-400 K/uL Mean Platelet Volume 11.0 7.4-10.4 fL Neutrophils (%) (Auto) 92.9 % Lymphocytes (%) (Auto) 4.3 % Monocytes (%) (Auto) 2.5 % Eosinophils (%) (Auto) 0.0 % Basophils (%) (Auto) 0.1 % Neutrophils # (Auto) 8.11 1.4-6.5 K/uL Lymphocytes # (Auto) 0.38 1.2-3.4 K/uL Monocytes # (Auto) 0.22 0.11-0.59 K/uL Eosinophils # (Auto) 0.00 0-0.5 K/uL Basophils # (Auto) 0.01 0-0.2 K/uL RDW Standard Deviation 43.1 36.4-46.3 fL RDW Coefficient of Variation 13.0 11.5-14.5 % Immature Granulocyte % (Auto) 0.2 % Immature Granulocyte # (Auto) 0.02 0.00-0.02 K/uL Assessment & Plan POD # 0 s/p laparoscopic appendectomy - vitals stable - moderate pain, slightly controlled at this time - + nausea - adequate urine output - leukocytosis resolved Plan: advance diet as tolerated, see how she tolerated lunch continue Pain management as needed with Percocet and IV Dilaudid for breakthrough Continue IV Zofran as needed for nausea May be discharged later today if feeling better Dr. Clark has seen and examined patient, agrees with above
--- NOTE | 2017-02-11 11:44 | Discharge Instructions ---
Discharge Instructions Date of Service Feb 11, 2017. Admission Reason for Admission: Acute Appendicitis Discharge Discharge Diagnosis / Problem: acute appendicitis Discharge Goals Goal(s): Decrease discomfort Activity Recommendations Activity Limitations: as noted below No heavy lifting over 20 pounds for 2 weeks No strenuous activity or exercise until cleared by surgeon Walking and light activity is encouraged No driving while taking narcotic pain medication . Instructions / Follow-Up Instructions / Follow-Up You may shower in 3 days, sponge bath and wash hair in meantime, keep dressing dry. Leave steri strips on incisions for 7 days, they may fall off before that is okay Follow-up in surgical office with Dr. Clark or Larissa Billy PA-C in one week, please call [phone] to make an appointment Current Hospital Diet Patient's current hospital diet: Full Liquid Diet Discharge Diet Recommended Diet: Regular Diet Procedures Procedures Performed: Laparoscopic Appendectomy Pending Studies Studies pending at discharge: no Medical Emergencies . Who to Call and When: Medical Emergencies: If at any time you feel your situation is an emergency, please call 911 immediately. . Non-Emergent Contact Non-Emergency issues call your: Primary Care Provider, Surgeon Call Non-Emergent contact if: you have a fever, temperature is above 101.5, your pain is not controlled, your pain is worsening, wound has increased drainage, wound has increased redness, wound has increased pain . "Provider Documentation" section prepared by Larissa Billy. . VTE Core Measure Inpt VTE Proph given/why not?: SCD's [place] Drug Monitoring Program Search Results: patient reviewed within database, no issues identified
[2017-02-11] MEDS ORDERED: OXYC-57 PO (11:45)
[2017-02-11] MEDS ORDERED: TRAMADOL HCL 50 MG TAB PO PRN (13:15)
[2017-02-11] MEDS ORDERED: OXYCODONE/ACETAMINOPHEN 5-325 TAB PO PRN (15:00)
--- NOTE | 2017-02-12 12:27 | Discharge Summary ---
Discharge Summary Dates Admission Date / Time: Feb 10, 2017 at 22:58 Discharge Date: Feb 11, 2017 Dispostion / Condition Discharge Disposition: Home Condition at Discharge: Good Principal Diagnosis (1) Acute appendicitis Problem List (1) Acute appendicitis Consultations / Procedures Consultations: NONE Procedures: Laparoscopic appendectomy Pending Studies / Follow-Up pathology of appendix pending Medication Reconciliation New Medications: Oxycodone/Acetaminophen 5MG/325MG (Percocet 5MG/325MG) Tab 1 TABLET PO Q4H PRN for Pain, #18 TAB Continued Medications: Albuterol (Ventolin Hfa) 60 Puffs/5400 Mcg Aers 2 PUFFS INH Q4H PRN for Wheezing Control Pills ( Control Pills) Tab 1 TAB PO DAILY, TAB Ranitidine Hcl (Zantac) 150 Mg Tab 150 MG PO QAM, TAB Admission HPI Per the Admitting provider: pt is a 26 years old female who presents to ER for 1 day history RLQ pain, with nausea, vomiting, and diarrhea, the pain is located at RLQ area, pt denies fever, pt had laparoscopic cholecystectomy 5 weeks ago. She had a CT scan of abdomen and pelvis which showed a dilated appendix measuring 11 mm in size consistent with acute appendicitis. She had a white count slightly elevated at 13.39. Hospital Course (1) Acute appendicitis Patient was taken to operating room for laparoscopic appendectomy. She tolerated the procedure well without any complications. Was transferred to PACU in stable condition and then Med/Surg floor. Her diet was advanced to clear liquids. she was given IV Dilaudid and Po Percocet as needed for pain. Also IV Zofran was ordered. Dressings are to stay on for 3 days and then removed. POD # 0 she was doing okay. SHe was nauseated in the morning and pain moderately controlled. Ambulated hallway and urinated without difficulty. She tolerated breakfast and lunch but still had moderate pain. Decided to stay for dinner and then if she did well wanted to go home. She was discharged on POD # 0 in stable condition. Overall hospital course was uneventful. Discharge Instructions As given to patient Copies To Primary Care Provider: Jose Alfredo Almazan M.D.. Problem Qualifiers (1) Acute appendicitis: Acute appendicitis type: with localized peritonitis Qualified Codes: K35.3 - Acute appendicitis with localized peritonitis
== END 2017-02-11 18:22 | disposition home or self-care (01) ==
LOC: EDBD 18:57 → C.EDB 19:00 → C.MSW 22:58
PROVIDERS: ADMIT Surgery; ATTEND Surgery
DX: K35.3 Acute appendicitis with localized peritonitis (principal); Z90.49 Acquired absence of other specified parts of digestive tract; F17.200 Nicotine dependence, unspecified, uncomplicated; Z79.3 Long term (current) use of hormonal contraceptives; J45.909 Unspecified asthma, uncomplicated; Z68.20 Body mass index [BMI] 20.0-20.9, adult

== ENCOUNTER 2022-07-04 02:51 | Inpatient (IN) ==
[2022-07-04] MEDS ORDERED: LIDOCAINE 1% LOCAL 20 ML VIAL INFIL PRN (03:56)
[2022-07-04] MEDS ORDERED: OXYTOCIN 30 UNITS/500 ML BAG IV PRN ×3 (03:56→12:14)
[2022-07-04 04:39] LABS: Hematocrit (blood only) 33.4 % (34.1-44.9); Hemoglobin 11.6 g/dl (12.0-16.0); Mean Corpuscular Hemoglobin 31.1 pg (25.0-34.0); Mean Corpuscular Hgb Conc 34.7 g/dL (32.0-36.0); Mean Corpuscular Volume 89.5 fL (80.0-100.0); Mean Platelet Volume 11.4 fL (9.4-12.3); Platelet Count 173 K/uL (130-400); RDW Coefficient of Variation 12.1 % (11.5-14.5); RDW Standard Deviation 39.1 fL (36.4-46.3); Red Blood Count 3.73 M/uL (3.93-5.22); White Blood Count 10.31 K/ul (4.8-10.8)
[2022-07-04] MEDS: LACTATED RINGER'S 1,000 ML IV PRN ×2 (05:30→08:45)
[2022-07-04 06:49] LABS: Rubella IgG Ab Non Immune (Immune)
[2022-07-04] MEDS ORDERED: fentaNYL citrate 100 MCG/2 ML VIAL ONE (07:00)
[2022-07-04] MEDS ORDERED: ePHEDrine sulfate 50 MG/ML AMP ONE (07:00)
[2022-07-04] MEDS ORDERED: LIDOCAINE 2%/EPINEPHRINE 1:200,000 20 ML SDV ONE ×2 (07:01→08:41)
[2022-07-04] MEDS ORDERED: BUPIVACAINE 0.25% 30 ML VIAL ONE (07:01)
[2022-07-04] MEDS ORDERED: fentaNYL 2MCG/ML ROPIVACAINE 1.25MG/ML 100 ML BAG EPI ONE (07:01)
[2022-07-04] MEDS ORDERED: SODIUM CHLORIDE 0.9% INJ 10 ML VIAL ONE ×2 (07:01→08:41)
[2022-07-04] MEDS ORDERED: NALOXONE HCL 0.4 MG/1 ML VIAL/CARP IV PRN (07:03)
[2022-07-04] MEDS ORDERED: NALBUPHINE HCL INJ 10 MG/ML AMP IV PRN (07:03)
[2022-07-04] MEDS ORDERED: fentaNYL 2MCG/ML ROPIVACAINE 1.25MG/ML 100 ML BAG EPI PRN (07:03)
[2022-07-04] MEDS ORDERED: diphenhydrAMINE 50 MG/ML VIAL IV PRN (07:03)
[2022-07-04] MEDS ORDERED: NALOXONE HCL 1 MG in SODIUM CHLORIDE 0.9% 1000ML 1,000 ML IV PRN (07:03)
[2022-07-04] MEDS ORDERED: ePHEDrine sulfate 50 MG/ML AMP IV PRN (07:03)
--- NOTE | 2022-07-04 07:03 | Anesthesiology Consultation ---
Date of Service July 04, 2022 Assessment & Plan Chart Review Chart Review: Patient NOT seen in Pre Admission Testing and Acceptable Risk for Labor Epidural Consults Requested none History Height/Weight Height: 5 ft 2 in Weight: 57.153 kg Allergies Allergy/AdvReac Type Severity Reaction Status Date / Time No Known Allergies Allergy Unverified 02/10/17 19:17 Medications Home Medications Medication Instructions Recorded Confirmed Last Taken albuterol 90 mcg/actuation aerosol 2 mcg inhalation DIRECTED 07/04/22 07/04/22 Unknown inhaler Active Medications Generic Name Dose Route Start Last Admin Trade Name Freq PRN Reason Stop Dose Admin Lactated Ringer's 1,000 mls @ 125 mls/hr 07/04/22 03:56 07/04/22 06:58 Lr IV 07/06/22 03:55 999 mls/hr .Q8H PRN Infusion L&D Protocol Protocol Oxytocin 30 units in 500 mls @ 4 mls/hr 07/04/22 05:07 07/04/22 06:30 Pitocin IV 07/06/22 05:06 0.24 units/hr .Q24H PRN 4 mls/hr Labor Induction/Augmentation Titration Protocol 0.24 UNITS/HR Past Medical History Medical History Cholecystectomy planned Gall bladder stones Past Surgical History Surgical History History of appendectomy [place] teeth removed Social History Smoking Status: Current every day smoker tobacco type: e-cigarettes Do You Dip or Chew Tobacco: No Hx Alcohol Use: No Hx Substance Use: No Physical Exam Vital Signs Last Vital Signs Temp 98.2 F 07/04/22 03:10 Resp 20 07/04/22 03:10 BP 122/59 L 07/04/22 03:09 Testing Laboratory Results 07/04/22 04:19
[2022-07-04] MEDS ORDERED: SODIUM CHLORIDE 0.9% 250 ML IV PRN (07:12)
[2022-07-04] MEDS ORDERED: Nursing to Pharmacy Communication SCH (08:45)
[2022-07-04] MEDS ORDERED: DIPHTHERIA/TETANUS/PERTUSSIS 0.5 ML SYR/VIAL IM ONE (12:14)
[2022-07-04] MEDS ORDERED: bisacodyL 10 MG SUPP PR PRN (12:14)
[2022-07-04] MEDS ORDERED: BENZOCAINE 20% AER SPR 82.5 GM CAN EXT PRN (12:14)
[2022-07-04] MEDS ORDERED: HYDROCORTISONE ACETATE 25 MG SUPP PR PRN (12:14)
[2022-07-04] MEDS ORDERED: oxyCODONE/ACETAMINOPHEN 5mg/325mg TAB PO PRN (12:14)
--- NOTE | 2022-07-04 13:04 | Delivery Summary ---
DELIVERY NOTE: The patient is 5, para 2, had 1 spontaneous AB. Blood type A positive, group B strep negative. She has an interesting obstetrical history. Her first delivery was complicated by placenta accreta and it was managed conservatively. The placenta did not come out. The diagnosis was confirmed by MRI. It was read outside this institution to confirm the diagnosis, but due to the fact that she was young, it was her first , she had no bleeding, she was given some prophylactic antibiotics, sent home. At that time, she was instructed to stay with her mother at all times and to come in the emergency room immediately if the bleeding resumed. She ended up coming in about 2 weeks later. The placenta came out intact and she was able to preserve her uterus. She then had a first trimester miscarriage. She got . Present was well dated with an early ultrasound in our office, was also referred to [facility] to evaluate the placenta and see if there are any signs of placenta accreta. She was evaluated at [facility]. The placental location was in the fundus and they found no evidence of placenta accreta. She was admitted in spontaneous labor with ruptured membranes and actually sporadic contractions. She was started on IV Pitocin. We typed and crossed her for 2 units of blood because of her history and brought up the crash cart in case we needed blood products had it available. With the Pitocin, we kept turning it up, she got epidural at about 6 cm, membranes were ruptured. Fluid was clear. Good pain control, went to full dilatation, had trouble with the anterior lip of the cervix; however, it eventually cleared. She pushed for about 50 minutes and delivered a live male infant via direct occiput anterior position over an intact perineum. Infant was suctioned through the mouth and the nose. Shoulders were delivered without difficulty. Cord was allowed to pulse for a full minute, then clamped and cut. I cut the cord, gave the baby to the mother and nurse, obtained cord blood. With IV Pitocin running at this time, the placenta came out intact without any problems. Hemostasis was good. She had a first-degree laceration of the perineum, which was reapproximated with a running 2-0 Vicryl and then a deep suture of 2-0 Vicryl was used to approximate the bulbocavernosus muscle. A running subcuticular suture was used to approximate the perineal skin edges. Following this, vaginal exam revealed no hematoma formation or sponges in the vagina. The patient tolerated the procedure well. Estimated blood loss was 200 mL. Apgars were deferred to the nurses. Job ID: [id number] [facility]
--- NOTE | 2022-07-04 13:04 | Anesthesia Procedure Note ---
Date of Service July 04, 2022 Anesthesia Post Epidural Note Vital Signs Vital Signs: Temp Pulse Resp BP Pulse Ox 98.4 F 55 L 18 112/76 97 07/04/22 09:38 07/04/22 12:19 07/04/22 12:50 07/04/22 12:19 07/04/22 12:10 Pain Intensity Abdomen: Pain Intensity: 10 Notes Mental Status: alert / awake / arousable and participated in evaluation Nausea / Vomiting: adequately controlled Pain: adequately controlled Airway Patency, RR, SpO2: stable & adequate BP & HR: stable & adequate Hydration State: stable & adequate Neuraxial Anesthesia: was administered and sensory block is resolving Anesthetic Complications: no major complications apparent and Pt Satisfied with anesthetic care Epidural: Removed without complications and With tip intact
[2022-07-04 15:32] VITALS: O2SAT 98
[2022-07-04] MEDS: IBUPROFEN 600 MG TAB PO PRN ×2 (15:40→20:46)
[2022-07-04] MEDS: ACETAMINOPHEN W/CODEINE #3 1 TAB PO PRN (19:00)
[2022-07-04] MEDS: DOCUSATE SODIUM 100 MG CAP PO SCH (19:32)
[2022-07-05] MEDS: ACETAMINOPHEN W/CODEINE #3 1 TAB PO PRN (03:41)
[2022-07-05] MEDS: IBUPROFEN 600 MG TAB PO PRN ×3 (03:42→13:41)
[2022-07-05 07:06] LABS: Hematocrit (blood only) 29.1 % (34.1-44.9); Hemoglobin 9.9 g/dl (12.0-16.0); Mean Corpuscular Volume 91.2 fL (80.0-100.0); Mean Platelet Volume 11.4 fL (9.4-12.3); Platelet Count 152 K/uL (130-400); RDW Standard Deviation 39.9 fL (36.4-46.3); Red Blood Count 3.19 M/uL (3.93-5.22)
[2022-07-05] MEDS ORDERED: PRENATAL VITAMIN 1 TAB PO SCH (08:00)
--- NOTE | 2022-07-05 08:47 | Obstetrical Progress Note ---
Date of Service July 05, 2022 Assessment & Plan Admission and Anticipated Discharge Date Admission Date: July 04, 2022 Subjective abdomen soft and non tender no calf tenderness ambulating well vaginal bleeding scant hgb 9.9 Results & Data ([facility]) Vital Signs (Past 12 Hours) Vital Signs Temp Pulse Resp BP O2 Del Method 07/05/22 03:50 36.4 C L 54 L 16 100/58 L Room Air 07/04/22 23:05 36.6 C 93 H 16 93/58 L
[2022-07-05] MEDS: DOCUSATE SODIUM 100 MG CAP PO SCH (09:15)
[2022-07-05] MEDS: ACETAMINOPHEN 325 MG TAB PO PRN ×2 (09:15→15:10)
[2022-07-05 11:10] LABS: HBSAG NON-REACTIVE (NON-REACTIVE)
[2022-07-05] MEDS ORDERED: MEASLES, MUMPS & RUBELLA VIRUS VIAL SQ ONE (13:49)
[2022-07-05 18:17] VITALS: BP 104/62; TEMP 98.1
[2022-07-05 18:19] VITALS: PULSE 54
[2022-07-05] MEDS ORDERED: bisacodyL 5 MG TABEC PO SCH (20:00)
--- NOTE | 2022-07-11 09:03 | Coding Query ---
CODING QUERY To promote full compliance with coding requirements relating to patient care, provider participation is requested in all cases of hotel or motel receptionist uncertainty. Please assist us with the question(s) below: Coding Question(s): Please confirm the weeks of gestation at the time of the patient's admission. This information is missing in the documentation. Physician's Response(s): 40 weeks gestation Thank you Bere Cat Principal Diagnosis: "that condition established after study, to be chiefly responsible for occasioning the admission of the patient to the hospital for care." Co-Existing Principal Diagnosis: "when two or more diagnoses equally meet the criteria for principal diagnosis as determined by the circumstances of admission, diagnostic work up, and/or therapy provided, and the Alphabetic Index, Tabular List, or another coding guideline does not provide sequencing direction, any one of the diagnoses may be sequenced first." "When the physician has documented what appears to be a current diagnosis in the body of the record, but has not included the diagnosis in the final diagnostic statement, the physician should be asked whether the diagnosis should be added." (Source Coding [facility] 2 QTR90. p3-4) JAVI
== END 2022-07-05 15:15 | disposition home or self-care (01) | DRG 807 ==
LOC: OPB 02:51 → 4S1 02:54 → 4E2 14:30